=== PATIENT | female | born 1980 | race Two or more races ===

== ENCOUNTER 2021-05-21 13:02 | Emergency (ER) | payer OTHER ==
[2021-05-21 13:15] VITALS: BMI 28.3
[2021-05-21] MEDS ORDERED: AZITHROMYCIN 500 MG TABLET PO ONE (15:18)
[2021-05-21] MEDS ORDERED: LEVONORGESTREL 1.5 MG TABLET (PLAN B ONE-STEP) PO ×2 (15:18→15:44)
[2021-05-21] MEDS ORDERED: cefTRIAXone SODIUM 1 GM VIAL ONE (15:44)
[2021-05-21] MEDS ORDERED: AZITHROMYCIN 250 MG TABLET ONE (15:44)
[2021-05-21] MEDS ORDERED: LIDOCAINE HCL/PF 1% SDV 5ML VIAL ONE (15:45)
[2021-05-21 16:34] LABS: EOS % 1.4 % (0-4.5); HEMATOCRIT 41.7 % (32.4-45.2); HEMOGLOBIN 14.1 GM/dL (10.7-15.3); LYMPH % 20.6 % (8-40); MCH 31.6 pg (25.7-33.7); MCHC 33.8 g/dl (32.0-36.0); MEAN CELL VOLUME 93.4 fl (80-96); MEAN PLT VOLUME 7.7 fl (7.5-11.1); PLATELET COUNT 420 10^3/uL (134-434); RBC 4.46 M/mm3 (3.60-5.2); RDW 14.3 % (11.6-15.6); WHITE BLOOD COUNT 11.4 K/mm3 (4.0-10.0)
[2021-05-21 16:54] LABS: CHLORIDE 108 mmol/L (98-107); SODIUM 141 mmol/L (136-145)
[2021-05-21 16:56] LABS: ALBUMIN 4.1 g/dl (3.4-5.0); ANION GAP 8 MMOL/L (8-16); BLOOD UREA NITROGEN 7.2 mg/dL (7-18); CALCIUM 8.5 mg/dL (8.5-10.1); CO2 25 mmol/L (21-32); GLUCOSE,RANDOM 89 mg/dL (74-106)
[2021-05-21 16:59] LABS: CREATININE 0.6 mg/dL (0.55-1.3); SGOT/AST 30 U/L (15-37); SGPT/ALT 58 U/L (13-61)
[2021-05-21 17:01] LABS: BILIRUBIN,TOTAL 0.4 mg/dL (0.2-1); TOT PROT 7.6 g/dl (6.4-8.2)
[2021-05-21 17:02] LABS: ALK PHOS 87 U/L (45-117)
[2021-05-21 17:49] LABS: HIV INTERPRETATION NEGATIVE (NEGATIVE)
[2021-05-21 18:25] VITALS: BP 120/72; PULSE 85; TEMP 98
== END 2021-05-21 18:00 | disposition home or self-care (01) ==
LOC: JER 13:02
PROC: 3E0233Z Introduction of Anti-inflammatory into Muscle, Percutaneous Approach (ICD-10-PCS; principal; 2021-05-21)
DX: Z04.41 Encounter for examination and observation following alleged adult rape (principal)
CPT/HCPCS: 36415; 80053; 84702; 85025; 86317; 86704; 86706; 86803; 87340; 87389; 99284-25

== ENCOUNTER 2021-05-25 19:37 | Emergency (ER) | payer OTHER ==
[2021-05-25 19:54] VITALS: BP 110/69; PULSE 67; TEMP 98.1; BMI 30.4
[2021-05-25] MEDS ORDERED: HEPATITIS B VIRUS VACCINE-PF 40 MCG/1 ML VIAL IM ONE (19:56)
[2021-05-25] MEDS ORDERED: HEPATITIS B IMMUNE GLOBULIN 5 ML VIAL IM ONE (19:56)
== END 2021-05-25 21:38 | disposition home or self-care (01) ==
LOC: JERFT 19:37
PROC: 3E0234Z Introduction of Serum, Toxoid and Vaccine into Muscle, Percutaneous Approach (ICD-10-PCS; principal; 2021-05-25)
DX: Z23 Encounter for immunization (principal)
CPT/HCPCS: 99284-25